=== PATIENT | female | born 1965 | race Caucasian/White ===

== ENCOUNTER 2025-04-22 12:00 | Emergency (ER) | payer OTHER, BC, SELFPAY ==
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
--- NOTE | ~2025-04-22 | XR_ITS ---
Examination: XR knee LT 3V Clinical History: trauma; LT KNEE PAIN Comparison: None Technique: 3 views left knee Findings/impression: No acute findings- 1. No fracture, dislocation, or effusion left knee. 2. No degenerative changes. Reviewed, dictated and finalized at location R.
--- NOTE | ~2025-04-22 | CT_ITS ---
EXAMINATION: CT brain wo con DATE: 04/22/2025 12:33 INDICATION: Head trauma TECHNIQUE: Computed tomography (CT) of the head was performed without intravenous contrast. Sagittal and coronal reconstructions were performed. The mA was adjusted according to patient size. Iterative reconstruction technique was employed. The dose-length product was 681.00 mGy-cm. COMPARISON: None FINDINGS: No fracture. No acute intracranial hemorrhage, acute infarction or abnormal extra axial fluid collection. Ventricles are normal and symmetric. No mass/mass effect. Mild to moderate mucosal thickening in the paranasal sinuses was performed in the bilateral maxillary sinuses. The orbits and mastoid air cells are normal. IMPRESSION: 1. No fracture or acute intracranial process. Reviewed, dictated and finalized at location A.
--- NOTE | ~2025-04-22 | CT_ITS ---
EXAMINATION: CT cervical spine wo con COMPARISON: None HISTORY: trauma TECHNIQUE: Axial images were obtained through the spine without IV contrast. Coronal, sagittal reconstruction images were obtained from the axial views. CT scan performed using dose optimization techniques including the following automated exposure control; adjustment of mA and/or kV; use of iterative reconstruction technique. Automatic exposure control was used to reduce radiation dose. Permanent radiation dose record is archived to PACS. FINDINGS: The vertebral heights are intact. No fracture or subluxation. Moderate loss of disc height at C5-6 and C6-7 with moderate canal and foraminal stenosis, outpatient MRI is recommended Soft tissues unremarkable. Impression: No acute abnormality. Reviewed, dictated and finalized at location P. Impression: No acute abnormality.
[2025-04-22 12:07] VITALS: BP 151/80; PULSE 74; RESP 20; TEMP 36.2; O2SAT 96
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
[2025-04-22] MEDS: ACETAMINOPHEN 500 MG TABLET 1000 MG PO (12:46)
[2025-04-22] MEDS: CYCLOBENZAPRINE HCL 10 MG TABLET PO (12:47)
--- OUTSIDE RECORDS SUMMARY | 2025-04-22 13:06 | XMS_ITS | Clinical Summary ---
Author Organization [facility] Address [address] [place] [address] Phone Care Team Providers Care Manager Group Name Role Phone Unavailable Primary Care Provider Unavailabl e Allergies No known active allergies Medications HYDROcodone-susan taminophen (NORCO) 5-325 mg tabletIndicatio ns:Calculus of ureter Take 1 Tablet by mouth every 4 hours as needed for Pain, Moderate. Max Daily Amount: 6 Tablets 20 Tablet 10/25/2024 Active Active Problems Problem Noted Date Diagnosed Date Ureterolithiasis 10/15/2020 Acute unilateral obstructive uropathy 10/15/2020 Kidney stone on right side 10/13/2020 ZORAIDA (obstructive sleep apnea) 10/13/2020 Encounters Date Type Department Care Team Description 04/01/2025 External Device Data [facility] ABSTRACTION Provider, Abstract 02/18/2025 External Device Data [facility] ABSTRACTION Provider, Abstract 01/29/2025 External Device Data [facility] ABSTRACTION Provider, Abstract 01/29/2025 External Device Data [facility] ABSTRACTION Provider, Abstract 01/28/2025 External Device Data [facility] ABSTRACTION Provider, Abstract from Last 3 Months Social History Tobacco Use Types Packs/Day Years Used Date Smoking Tobacco: Former Cigarettes Q uit: 09/14/2005 Smokeless Tobacco: Former Tobacco Cessation:Counseling Given: Not Answered Alcohol Use Standard Drinks/Week Comments Never 0 (1 standard drink = 0.6 oz pur e alcohol) Feeling Safe Answer Date Recorded Are you in a relationship wi th someone who hurts you emotionally and/or physically? No 10/25/2024 Comments No Sex and Gender Information Value Date Recorded Sex Assigned at Not on file Legal Sex Female 10:52 PM CDT Gender Identity Not on file Sexual Orientation Not on file Last Filed Vital Signs Vital Sign Reading Time Taken Comments Blood Pressure 141/77 10/25/2024 8:40 AM CDT Pulse 77 10/25/2024 8:40 AM CDT Temperature 36.1 C (97 F) 10/25/2024 8:43 AM CDT Respiratory Rate 15 10/25/2024 8:40 AM CDT Oxygen Saturation 98% 10/25/2024 8:40 AM CDT Inhaled Oxygen Concentration - - Weight 90.3 kg (199 lb) 10/25/2024 6:21 AM CDT Height 165.1 cm (5' 5) 10/25/2024 6:21 AM CDT Body Mass Index 33.12 10/25/2024 6:21 AM CDT Plan of Treatment Health Maintenance Due Date Last Done Comments Pre-Diabetes and Diabetes Screening 1965 HEPATITIS B VACCINES (1 of 3 - 19+ 3-dose series) 11/23/1986 HPV/Cotest (21-29) 11/23/1988 CERVICAL CANCER SCREENING 11/23/1997 HPV/Cotest (30-65) 11/23/1997 PAP SMEAR 11/23/1997 FIT-DNA Q 3 years 11/23/2012 FIT/FOBT Q 1 year 11/23/2012 Flex Sig/CT Colonography Q 5 years 11/23/2012 ZOSTER VACCINE (2 of 3) 10/31/2020 09/05/2020, 04/24 DTAP/TDAP/TD VACCINES (2 - T d or Tdap) 07/17/2024 07/17/2014 INFLUENZA VACCINE (#1) 2025 0, 07/15/2019, 05/09/2016 BREAST CANCER SCREENING 03/19/2025 03/19/20 24, 03/19/2024, 03/17/2023, Additional history exists COLORECTAL SCREENING 07/17/2027 07/17/2017 Colorectal Cancer Screening 07/17/2027 Medical Devices Implanted Type Area Dermatology Teacher Device Identifier Shelf Expiration Date Model / Serial / Lot Stent Uret Dbl Pgtl Slcn Blk [id number] - [id number] Implanted:Qty: 1 on 10/15/2020 by Jad Garcia MD at [facility] Stent Right: Ureter COOK- UROLOGY [id number] 07/23/2023 [id number] / / [id number] Stent Ureteral Dbl Pgtl 6fr 24cm [id number] - [id number] Implanted:Qty: 1 on 10/25/2024 by Jad Garcia MD at [facility] [place][Note 2] Stent Left: Ureter COOK- INTERVENTIONAL RAD [id number] 06/12/2026 [id number] / / [id number] Insurance [facility] FEDERAL Advance Directives For more information, please contact: [phone] * Full Code (Latest Code Status on File) Date Activated Date Inactivated Comments 10/13/2020 2:34 PM 10/15/2020 3:21 PM
--- OUTSIDE RECORDS SUMMARY | 2025-04-22 13:06 | XMS_ITS | Encounter Summary ---
Author Organization [facility] Address [address] [place] [address] Care Team Providers Care Shot Polisher Name Role Phone Unavailable Primary Care Provider Unavailabl e Reason for Visit * Reason Onset Date Comments KIDNEY STONES 10/13/2020 [facility] Encounter Details Date Type Department Care Team (Late st Contact Info) Description 10/13/2020 Telephone [facility] Admitting [address] [place] [address] Enzo Polo, [address] [place] [address] KIDNEY STONES ([facility]) Social History Tobacco Use Types Packs/Day Years Used Date Smoking Tobacco: Former Cigarettes Q uit: 09/14/2005 Smokeless Tobacco: Former Alcohol Use Standard Drinks/Week Comments Never 0 (1 standard drink = 0.6 oz pur e alcohol) Comments Unknown Sex and Gender Information Value Date Recorded Sex Assigned at Not on file Legal Sex Female 10:52 PM CDT Gender Identity Not on file Sexual Orientation Not on file COVID-19 Exposure Response Date Recorded In the last month, have you been in contact with someone who was confirmed or suspected to have Coronavirus / COVID-19? No / Unsure 10/15/2020 7:40 AM CDT documented as of this encounter Plan of Treatment Not on file documented as of this encounter Visit Diagnoses Not on filedocumented in this encounter
--- OUTSIDE RECORDS SUMMARY | 2025-04-22 13:06 | XMS_ITS | Encounter Summary ---
Author Organization [facility] Address [address] [place] [address] Care Team Providers Care Tank Maker Wood Name Role Phone Unavailable Primary Care Provider Unavailabl e Prior Encounters Date Type Department Care Team Description 11/11/2024 7:00 AM CDT Office Visit [facility] [address] [address] Fernando Godfrey Encounter for dental examination and cleaning without abnormal findings (Primary Dx) 03/22/2024 9:30 AM CDT Office Visit [facility] [address] [address] Daniel Acuna DMD 03/21/2024 1:00 PM CDT Office Visit [facility] [address] [address] Zaria Temple RDH Encounter for dental examination and cleaning without abnormal findings (Primary Dx) 03/21/2024 12:00 PM CDT Office Visit [facility] [address] [address] Daniel Acuna DMD Encounter for dental examination and cleaning without abnormal findings (Primary Dx) 08/21/2023 Travel 08/21/2023 2:00 PM ELECTRIC BLANKET WIRER Office Visit [facility] [address] [address] Zaria Temple RDH Encounter for dental examination and cleaning without abnormal findings (Primary Dx) 08/21/2023 2:00 PM ELECTRIC BLANKET WIRER Office Visit [facility] [address] [address] Fernando Godfrey. Encounter for dental examination and cleaning without abnormal findings (Primary Dx) 02/15/2023 7:00 AM CDT Office Visit [facility] [address] [address] Fernando Godfrey 08/09/2022 9:00 AM ELECTRIC BLANKET WIRER Office Visit [facility] [address] [place] [address] [phone] Fernando Godfrey 09/23/2021 8:15 AM ELECTRIC BLANKET WIRER Office Visit [facility] [address] [place] [address] Zaria Temple, [facility] 09/23/2021 Travel 09/23/2021 8:00 AM ELECTRIC BLANKET WIRER Office Visit [facility] [address] [place] [address] Steve Bello, DMD 08/11/2021 Travel 08/11/2021 8:00 AM ELECTRIC BLANKET WIRER Office Visit [facility] [address] [place] [address] Steve Bello, DMD 03/24/2021 10:30 AM CDT Office Visit [facility] [address] [place] [address] Zaria Temple, [facility] 03/24/2021 Travel 03/24/2021 10:00 AM CDT Office Visit [facility] [place] [address] Steve Bello, DMD 08/05/2019 Converted CPS Chart Documents [facility] [place] [address] <No scans attached> 08/05/2019 Converted 13x Documents [facility] [place] [address] <No scans attached> Last Filed Vital Signs Vital Sign Reading Time Taken Comments Blood Pressure 123/83 03/22/2024 9:39 AM CDT Pulse 65 03/22/2024 9:39 AM CDT Temperature - - Respiratory Rate - - Oxygen Saturation - - Inhaled Oxygen Concentration - - Weight - - Height - - Body Mass Index - - Plan of Treatment Upcoming Encounters Date Type Department Care Team (Late st Contact Info) Description 05/19/2025 7:00 AM ELECTRIC BLANKET WIRER Office Visit [facility] [address] [address] Fernando Godfrey [address] [phone] Procedures Procedure Name Priority Date/Time Associated Diagnosis Comments PROPHYLAXIS - ADULT Routine 11/11/2024 7 :00 AM CDT Encounter for dental examination and cleaning without abnormal findings BITEWINGS - FOUR RADIOGRAPHIC IMAGES Routine 11/11/2024 7:00 AM CDT PERIODIC ORAL EVALUATION - ESTABLISHED PATIENT Routine 11/11/2024 7:00 AM CDT Encounter for dental examination and cleaning without abnormal findings 15 O RESIN-BASED COMPOSITE - ONE SURFACE, POSTERIOR Routine 03/22/2024 9:30 AM CDT PROPHYLAXIS - ADULT Routine 03/21/2024 1 :00 PM CDT Encounter for dental examination and cleaning without abnormal findings PERIODIC ORAL EVALUATION - ESTABLISHED PATIENT Routine 03/21/2024 12:00 PM CDT Encounter for dental examination and cleaning without abnormal findings PROPHYLAXIS - ADULT Routine 08/21/2023 2 :00 PM ELECTRIC BLANKET WIRER Encounter for dental examination and cleaning without abnormal findings ORAL HYGIENE INSTRUCTIONS Routine 2023 2:00 PM ELECTRIC BLANKET WIRER PERIODIC ORAL EVALUATION - ESTABLISHED PATIENT Routine 08/21/2023 2:00 PM ELECTRIC BLANKET WIRER Encounter for dental examination and cleaning without abnormal findings BITEWINGS - FOUR RADIOGRAPHIC IMAGES Routine 08/21/2023 2:00 PM ELECTRIC BLANKET WIRER 5 MOD COMPOSITE FILLING Routine 08/21/19 12:00 AM ELECTRIC BLANKET WIRER PLAN VISIT FEE Routine 02/15/2023 7:00 AM CDT PERIODIC ORAL EVALUATION - ESTABLISHED PATIENT Routine 02/15/2023 7:00 AM CDT PROPHYLAXIS - ADULT Routine 02/15/2023 7 :00 AM CDT TOPICAL APPLICATION OF FLUORIDE VARNISH Routine 02/15/2023 7:00 AM CDT PLAN VISIT FEE Routine 08/09/2022 9:00 AM ELECTRIC BLANKET WIRER INTRAORAL PHOTO Routine 08/09/2022 9:00 AM ELECTRIC BLANKET WIRER COMPREHENSIVE ORAL EVALUATION - NEW OR ESTABLISHED PATIENT Routine 08/09/2022 9:00 AM ELECTRIC BLANKET WIRER INTRAORAL - COMPREHENSIVE SERIES OF RADIOGRAPHIC IMAGES Routine 08/09/2022 9:00 AM ELECTRIC BLANKET WIRER PANORAMIC RADIOGRAPHIC IMAGE Routine 08/09/2022 9:00 AM ELECTRIC BLANKET WIRER INTRAORAL PHOTO Routine 08/09/2022 9:00 AM ELECTRIC BLANKET WIRER INTRAORAL PHOTO Routine 08/09/2022 9:00 AM ELECTRIC BLANKET WIRER INTRAORAL PHOTO Routine 08/09/2022 9:00 AM ELECTRIC BLANKET WIRER PROPHYLAXIS - ADULT Routine 09/23/2021 8 :15 AM ELECTRIC BLANKET WIRER BITEWINGS - FOUR RADIOGRAPHIC IMAGES Routine 09/23/2021 8:00 AM ELECTRIC BLANKET WIRER PERIODIC ORAL EVALUATION - ESTABLISHED PATIENT Routine 09/23/2021 8:00 AM ELECTRIC BLANKET WIRER NEW PATIENT INTRAORAL - PERIAPICAL FIRST RADIOGRAPHIC IMAGE Routine 08/11/2021 8:00 AM ELECTRIC BLANKET WIRER 14 RECEMENT CROWN Routine 08/11/2021 8:0 0 AM ELECTRIC BLANKET WIRER OFFICE VISIT FOR OBSERVATION (DURING REGULARLY SCHEDULED HOURS) - NO OTHER SERVICES PERFORMED Routine 08/11/2021 8:00 AM ELECTRIC BLANKET WIRER TOPICAL APPLICATION OF FLUORIDE VARNISH Routine 03/24/2021 10:30 AM CDT PROPHYLAXIS - ADULT Routine 03/24/2021 1 0:30 AM CDT PLAN VISIT FEE Routine 03/24/2021 10:00 AM CDT PERIODIC ORAL EVALUATION - ESTABLISHED PATIENT Routine 03/24/2021 10:00 AM CDT 14 CERECFIRED CROWNPOST Routine 09/22/19 2:00 AM ELECTRIC BLANKET WIRER 18 CERECFIRED CROWNPOST Routine 09/22/19 2:00 AM ELECTRIC BLANKET WIRER 14 ENDODONTIC THERAPY, MOLAR TOOTH (EXCLUDING FINAL JEWISH) Routine 09/21/2020 2:00 AM ELECTRIC BLANKET WIRER COMPREHENSIVE ORAL EVALUATION - NEW OR ESTABLISHED PATIENT Routine 09/21/2020 2:00 AM ELECTRIC BLANKET WIRER ORAL HYGIENE INSTRUCTIONS Routine 2020 2:00 AM ELECTRIC BLANKET WIRER ORAL HYGIENE INSTRUCTIONS Routine 2020 2:00 AM ELECTRIC BLANKET WIRER PROPHYLAXIS - ADULT Routine 09/21/2020 2 :00 AM ELECTRIC BLANKET WIRER PANORAMIC RADIOGRAPHIC IMAGE Routine 09/21/2020 2:00 AM ELECTRIC BLANKET WIRER INTRAORAL - COMPREHENSIVE SERIES OF RADIOGRAPHIC IMAGES Routine 09/21/2020 2:00 AM ELECTRIC BLANKET WIRER PLAN VISIT FEE Routine 09/21/2020 2:00 AM ELECTRIC BLANKET WIRER INTRAORAL PHOTO Routine 09/21/2020 2:00 AM ELECTRIC BLANKET WIRER INTRAORAL PHOTO Routine 09/21/2020 2:00 AM ELECTRIC BLANKET WIRER INTRAORAL PHOTO Routine 09/21/2020 2:00 AM ELECTRIC BLANKET WIRER INTRAORAL PHOTO Routine 09/21/2020 2:00 AM ELECTRIC BLANKET WIRER 19 DO COMPOSITE FILLING Routine 09/22/19 21 2:00 AM ELECTRIC BLANKET WIRER 31 O COMPOSITE FILLING Routine 1 2:00 AM ELECTRIC BLANKET WIRER 30 O COMPOSITE FILLING Routine 1 2:00 AM ELECTRIC BLANKET WIRER 15 O COMPOSITE FILLING Routine 1 2:00 AM ELECTRIC BLANKET WIRER 3 O COMPOSITE FILLING Routine 09/21/2020 2:00 AM ELECTRIC BLANKET WIRER 2 O COMPOSITE FILLING Routine 09/21/2020 2:00 AM ELECTRIC BLANKET WIRER Visit Diagnoses Diagnosis Start Date Encounter for dental examination and cleaning without abnormal findings 08/21/2023 Encounter for dental examination and cleaning without abnormal findings 08/21/2023 Encounter for dental examination and cleaning without abnormal findings 03/21/2024 Encounter for dental examination and cleaning without abnormal findings 03/21/2024 Encounter for dental examination and cleaning without abnormal findings 11/11/[address] [facility] ELISE PEARSON [id number] [facility] [place] FEDERAL
--- OUTSIDE RECORDS SUMMARY | 2025-04-22 13:06 | XMS_ITS | Clinical Summary ---
Author Organization [facility] Address [address] [place] [address] Care Team Providers Care General Office Assistant Name Role Phone Unavailable Primary Care Provider Unavailabl e Social History Tobacco Use Types Packs/Day Years Used Date Smoking Tobacco: Never Assessed Comments Unknown Sex and Gender Information Value Date Recorded Sex Assigned at Not on file Legal Sex Female 6:54 PM CDT Gender Identity Not on file Sexual Orientation Not on file Plan of Treatment Health Maintenance Due Date Last Done Comments Cervical Cancer Screening Pa p Smear (Age 30 to 64) Every 3 Years 1967 Colorectal Cancer Screening Colonoscopy (10 Years) 1967 Annual Physical 11/23/1970 Hepatitis C 11/23/1985 DTaP, Tdap and Td Vaccines ( 1 - Tdap) 11/23/1986 Hepatitis B Vaccines (1 of 3 - 19+ 3-dose series) 11/23/1986 Cervical Cancer Screening Pa p with HPV Testing (Age 30 to 64) Every 5 Years 11/23/1997 Cervical Cancer Screening with HPV 11/23/1997 Mammogram Screening 2007 Pneumococcal Vaccine: 50+ Ye ars (1 of 1 - PCV) 11/23/2017 Zoster Vaccines (1 of 2) 11/23/2017 COVID-19 Vaccine (2023-2 5 season) 2025 Influenza Adult (#1) 2025 Meningococcal B Vaccine Aged Out No l onger eligible based on patient's age to complete this topic Meningococcal Vaccine Aged Out No zac marisela eligible based on patient's age to complete this topic RSV Immunizations Under 20 Months Aged Out No longer eligible based on patient's age to complete this topic
--- OUTSIDE RECORDS SUMMARY | 2025-04-22 13:06 | XMS_ITS | Clinical Summary ---
Author Organization [facility] Address [address] [place] [address] Care Team Providers Care Ultrasound Sonographer Name Role Phone Michael Covington DO Primary Care Provider + Encounters Date Type Department Care Team Description 03/31/2025 12:42 PM CDT - 03/31/2025 11:59 PM CDT Hospital Encounter [address] [place] [address] Screening mammogram, encounter for Discharge Disposition: Discharge to home or self care from Last 3 Months Family History Medical History Relation Name Comments Breast cancer Cousin Breast cancer Father's Sister Ovarian cancer Neg Hx Pancreatic cancer Neg Hx Prostate cancer Neg Hx Relation Name Status Comments Cousin Father's Sister Social History Tobacco Use Types Packs/Day Years Used Date Smoking Tobacco: Never Assessed Comments Unknown Sex and Gender Information Value Date Recorded Sex Assigned at Not on file Legal Sex Female 8:49 AM CDT Gender Identity Not on file Sexual Orientation Not on file Obstetrics History Para Term AB IAB SAB Ectopic Multiple Livin g Live Births 9 1 Date Outcome GA Total Labor Labor/2nd/3rd Weight Sex Type Anes PTL Rama A1 A5 Name Clin Last Filed Vital Signs Vital Sign Reading Time Taken Comments Blood Pressure - - Pulse - - Temperature - - Respiratory Rate - - Oxygen Saturation - - Inhaled Oxygen Concentration - - Weight 90.7 kg (200 lb) 03/31/2025 12:47 PM CDT Height 165.1 cm (5' 5) 03/31/2025 12:47 PM CDT Body Mass Index 33.28 03/31/2025 12:47 PM CDT Plan of Treatment Health Maintenance Due Date Last Done Comments Cervical Cancer Screening 1967 Colon Cancer Screening-Colonoscopy 1967 Depression Screening 1967 Hepatitis C Screening 1967 Hepatitis B Screening 11/23/1985 Regular Well Visit/Exam 18-64 11/23/1985 DTaP/Tdap/Td Vaccine (2 - Td or Tdap) 07/17/2024 07/17/2014 Influenza Vaccine (#1) 2025 3, 04/04/2020, 04/04/2020, Additional history exists Breast Cancer Screening-Mammogram 03/31/2026 03/31/2025, 03/19/2024, 03/17/2023, Additional history exists Pneumococcal vaccine <65 Aged Out 05/09/2016 No longer eligible based on patient's age to complete this topic Zoster Vaccine Completed 09/05/2020, 08/18, 04/24/2020, Additional history exists Procedures Procedure Name Priority Date/Time Associated Diagnosis Comments SCREENING MAMMOGRAM BILATERAL W REYNOLD Schedule Routine, Read Routine (OP Routine) 03/31/2025 12:59 PM CDT Screening mammogram, encounter for from Last 3 Months Results * Screening Mammogram Bilateral W Reynold (03/31/2025 12:59 PM CDT) Anatomical Region Laterality Modality Breast Bilateral Mammography Impressions 04/01/2025 1:33 PM CDT Bilateral No evidence of malignancy in either breast. OVERALL BI-RADS FINAL ASSESSMENT: 1 - Negative RECOMMENDATION: Recommend bilateral annual screening mammography. Narrative 04/01/2025 1:33 PM CDT EXAMINATION: Screening Mammogram Bilateral W Reynold: 03/31/2025 COMPARISON: Relevant prior studies available at the time of interpretation were reviewed, including the most recent mammogram on: 03/19/2024. TECHNIQUE: Mammography was performed with 2D and 3D digital breast tomosynthesis (DBT) images. CAD was utilized. BREAST PARENCHYMAL COMPOSITION: There are scattered areas of fibroglandular density. FINDINGS: Bilateral There is no suspicious mass, calcification, or architectural distortion in either breast. us Self Screening Mammogram IMG MAMMO PROCEDURES Fi nal Result from Last 3 Months Insurance [facility] Care Teams Ultrasound Sonographer Relationship Specialty Start Date End Date Michael Covington DO PCP - General 11/05/20
--- OUTSIDE RECORDS SUMMARY | 2025-04-22 13:06 | XMS_ITS | Clinical Summary ---
Author Organization [facility] Address [address] [place] [address] Care Team Providers Care Building Official Name Role Phone Michael Covington DO Primary Care Provider [phone] Tanisha Rascon DDS Unavailable Luis Cabrera MD Unavailable [phone] Source Comments [facility],non-owned Affiliates and Associated Physician Practices is amultiple site organization consisting of ambulatory clinics and hospital sitesin [place], [place], [place] and [place]. This disclosure is being madepursuant to the Care Everywhere program and may not contain all information available regarding this patient. Last updated 18.[facility] Allergies No known active allergies Medications * Be aware that medications may not be up to date on this document. Alwaysverify current medications with the patient. No known medications Active Problems Problem Noted Date Diagnosed Date Ureterolithiasis 10/15/2020 Acute unilateral obstructive uropathy 10/15/2020 Kidney stone on right side 10/13/2020 ZORAIDA (obstructive sleep apnea ) 2020: mild to moderate ZORAIDA, 191 lbs, AHI (3%) 23, AHI (4%), 14, SpO2 jermaine 79 % and < 89% for 20 min 02/26/2020 GERD (gastroesophageal reflux disease) 0 Varicose veins of lower extremity 11/14/2018 Dyspnea 10/31/2018 Electrocardiogram abnormal 09/11/2018 Resolved Problems Problem Noted Date Diagnosed Date Resolved Date Class 1 obesity due to exces s calories without serious comorbidity with body mass index (BMI) of 31.0 to 31.9 in adult 09/27/201904/2025 Hypersomnia 09/27/2019 10/24/2024 Malaise and fatigue 09/27/2019 10/25/19 Suspected sleep apnea 09/27/20192020 Snoring 09/27/2019 09/04/2020 Abnormal cytological finding in specimen from anus 08/05/2019 10/24/2024 Menstruation disorder 08/05/20192024 Atypical squamous cells of u ndetermined significance (ASCUS) on Papanicolaou smear of cervix 08/05/2019 10/24/2024 Cervical intraepithelial neoplasia grade 2 08/05/2019 10/24/2024 Irregular periods 08/05/2019 10/24/2024 Encounters Date Type Department Care Team Description 04/02/2025 Results Follow-Up [facility] [address] [place] [address] Michael Covington DO 02/05/2025 9:00 AM CDT Office Visit [facility] [address] [place] [phone] Elaina Sequeira, DIRECTOR MUSEUM OR ZOO-LEAD MECHANIC Concussion without loss of consciousness, initial encounter (Primary Dx) 02/04/2025 Nurse Triage [facility] [address] [place] [phone] Michael Covington DO Headache; Question from Last 3 Months Immunizations Immunization Administration Dates Next Due FLU VACCINE QUAD IIV4 SPLIT 0.25 ML IM 6 INFLUENZA VACCINE 06/06/2023 INFLUENZA VACCINE, CELL CULT URE, QUADR. (FLUCELVAX QUADRIVALENT; 6MO+) (CCIIV4) 07/15/2019 INFLUENZA VACCINE, QUADR. (F LUZONE; FLULAVAL; FLUARIX; AFLURIA QUADRIVALENT; 6MO+), 0.5 ML (IIV4) 04/04/2020 MARC VACCINE QUAD LAIV4 PF NASAL 04/04/2020,2018,05/09/2016 Pneumococcal Pcv13 Conj 05/09/2016 TDAP (7yrs+) 07/17/2014 ZOSTER VACCINE, LIVE 09/05/2020,04/24/2020 Zoster Hzv Vacc Recombinant Inj Im 09/05/2020, Family History Medical History Relation Name Comments CAD (Coronary Artery Disease) Brother Sleep Disorder - Other Brother ZORAIDA o n CPAP Cancer - Lung Father smoker CAD (Coronary Artery Disease) Mother Relation Name Status Comments Brother Alive Father Mother Alive Social History Tobacco Use Types Packs/Day Years Used Date Smoking Tobacco: Former Smokeless Tobacco: Never Comments:quit in 2008 Alcohol Use Standard Drinks/Week Comments Yes 0 (1 standard drink = 0.6 oz pur e alcohol) AUDIT-C Answer Date Recorded Frequency of Alcohol Consumption Monthly or less 08/05/2019 Average Number of Drinks 1 or 2 020 Frequency of Binge Drinking Less than monthly PHQ-2 Answer Date Recorded Patient Health Questionnaire-2 Score 0 12/02/2024 Comments No Sex and Gender Information Value Date Recorded Sex Assigned at Not on file Legal Sex Female 3:04 PM ASSOCIATE PROFESSOR OF HISTORY Gender Identity Not on file Sexual Orientation Not on file Last Filed Vital Signs Vital Sign Reading Time Taken Comments Blood Pressure 134/90 02/05/2025 9:11 AM CDT Pulse 77 02/05/2025 9:11 AM CDT Temperature 36 C (96.8 F) 05/22/2024 3:37 PM ASSOCIATE PROFESSOR OF HISTORY Respiratory Rate 18 12/02/2024 8:11 AM CDT Oxygen Saturation 97% 02/05/2025 9:11 AM CDT Inhaled Oxygen Concentration - - Weight 91.6 kg (202 lb) 02/05/2025 9:11 AM CDT Height 162.6 cm (5' 4) 12/12/2024 9:37 AM CDT Body Mass Index 34.67 12/12/2024 9:37 AM CDT Plan of Treatment Health Maintenance Due Date Last Done Comments COLOGUARD (AGES 45-75) - COLON CA SCREENING [address] COLONOGRAPHY - COLON CA SCREENING 1967 FIT - COLON CA SCREENING 1967 FLEX SIG - COLON CA SCREENING 1967 HIV SCREENING 11/23/1982 HEPATITIS C SCREENING 11/19/1985 HEPATITIS B VACCINE (1 of 3 - 19+ 3-dose series) 11/23/1986 PNEUMOCOCCAL VACCINE 50+ (2 of 2 - PPSV23, PCV20, or PCV21) 07/04/2016 05/09/2016 DTAP/TDAP/TD VACCINES (2 - Td or Tdap) 07/17/2024 07/17/2014 COVID-19 VACCINE ( season) 2025 01/27/2021, 01/06/2021 INFLUENZA VACCINE (#1) 2025 3, 04/04/2020, 04/04/2020, Additional history exists PAP SMEAR 08/10/2026 08/10/2023 (Done Outside Per Report), 09/14/2020 (Done Outside Per Patient) MAMMOGRAM 03/31/2027 03/31/2025, 0909/2023, 03/19/2024, Additional history exists COLONOSCOPY - COLON CA SCREENING 07/17/2027 07/17/2017 (Done Outside Per Report) Colorectal Cancer Screening 07/17/2027 SCREENING FOR DIABETES 12/14/2027 , 12/19/2022, 12/02/2021, Additional history exists LIPID TESTING 12/20/2027 12/19/2022, 11/14, 08/05/2019 ZOSTER VACCINE Completed 09/05/2020, 08/18, 04/24/2020, Additional history exists DEPRESSION SCREENING Completed 09/24/2024, 08/04/2023, 12/20/2022, Additional history exists HIB VACCINE Aged Out No longer eligi ble based on patient's age to complete this topic HPV VACCINE Aged Out No longer eligi ble based on patient's age to complete this topic MENINGOCOCCAL (Group B) VACCINE SHARED DECISION-MAKING Aged Out No longer eligible based on patient's age to complete this topic MENINGOCOCCAL GROUPS A/C/Y/W VACCINE Aged Out No longer eligible based on patient's age to complete this topic Procedures Procedure Name Priority Date/Time Associated Diagnosis Comments MAMMOGRAM 03/31/2025 COMPREHENSIVE METABOLIC PANEL Routine 12/13/2024 8:43 AM CDT Bilateral leg edema LIPID PROFILE Routine 12/19/2022 8:05 AM CDT Well adult exam from Last 3 Months or Most Recently Relevant to Health Maintenance Results * MAMMOGRAM (03/31/2025) Anatomical Region Laterality Modality Other 03/31/2025 Narrative 03/31/2025 Ordered by an unspecified provider. us Scanned Document SCANNING ONLY Final Result * COMPREHENSIVE METABOLIC PANEL (12/13/2024 8:43 AM CDT) Pathologist [facility] [place] Glucose 97 65 - 99 mg/dL [facility] Comment: Fasting reference interval BUN 10 7 - 25 mg/dL [facility] Creatinine 0.57 0.50 - 1.03 mg/dL [facility] eGFR by Cystatin C 106 > OR = 60 mL/min/1. 73m2 [facility] BUN/Creatinine Ratio SEE NOTE: 6 - 22 (calc) [facility] Comment: Not Reported: BUN and Creatinine are within reference range. Sodium 140 135 - 146 mmol/L [facility] Potassium 4.2 3.5 - 5.3 mmol/L [facility] Chloride 104 98 - 110 mmol/L [facility] CO2 26 20 - 32 mmol/L [facility] Calcium 9.5 8.6 - 10.4 mg/dL [facility] Protein Total 6.9 6.1 - 8.1 g/dL [facility] Albumin 4.4 3.6 - 5.1 g/dL [facility] Globulin Total 2.5 1.9 - 3.7 g/dL (calc) [facility] Albumin/Globulin Ratio 1.8 1.0 - 2.5 (calc) [facility] Bilirubin Total 0.5 0.2 - 1.2 mg/dL [facility] Alkaline Phosphatase 84 37 - 153 U/L [facility] AST 13 10 - 35 U/L [facility] ALT 14 6 - 29 U/L [facility] Comment: Test Performed at: [facility] [id number] [place] [id number] JASMIN HAMILTON MD Blood BLOOD SPECIMEN / Unknown 12/13/2024 8:43 AM CDT 12/13/2024 8:49 AM CDT Kvng Pablo MD LAB - CHEMISTRY ORDERABLES F inal Result [facility] [address] [place] [address] * (ABNORMAL) LIPID PROFILE (12/19/2022 8:05 AM CDT) Cholesterol 224(H) <200 mg/dL [facility] HDL Cholesterol 59 > OR = 50 mg/dL [facility] Triglycerides 91 <150 mg/dL [facility] LDL Calculated 145(H) mg/dL (calc) [facility] Comment: Reference range: <100 Desirable range <100 mg/dL for primary prevention; <70 mg/dL for patients with CHD or diabetic patients with > or = 2 CHD risk factors. LDL-C is now calculated using the Laura calculation, which is a validated novel method providing better accuracy than the Friedewald equation in the estimation of LDL-C. Ty SS et al. VIPUL. 2013;310(19): 7602-6826 (http://education.Zyga/faq/OOR138) CHOL/HDLC RATIO 3.8 <5.0 (calc) [facility] Non HDL Cholesterol 165(H) <130 mg/dL (calc) [facility] Comment: For patients with diabetes plus 1 major ASCVD risk factor, treating to a non-HDL-C goal of <100 mg/dL (LDL-C of <70 mg/dL) is considered a therapeutic option. Test Performed at: [facility] [address] [place] [phone] JASMIN HAMILTON MD Blood BLOOD SPECIMEN / Unknown 12/19/2022 8:05 AM CDT 12/19/2022 8:06 AM CDT Michael Covington DO LAB - CHEMISTRY ORDERABLES Fin al Result [facility] [address] [place] [address] from Last 3 Months or Most Recently Relevant to Health Maintenance Insurance [facility] Care Teams Building Official Relationship Specialty Start Date End Date Michael Covington DO PCP - General Family Medicine 08/05/19 Tanisha Rascon DDS [phone] [facility] [address] [place] [address] Dentist 02/26/20 Luis Cabrera MD [address] [facility] [address] [place] [address] Pulmonary Disease 09/24/24
--- OUTSIDE RECORDS SUMMARY | 2025-04-22 13:06 | XMS_ITS | Clinical Summary ---
Author Organization [facility] Address [address] [place] [address] Care Team Providers Care Financial Services Officer Name Role Phone Unavailable Primary Care Provider Unavailabl e Allergies No known active allergies Medications lansoprazole (PREVACID) [address] capsule Take 30 mg by mouth 1 (one) time each day. 1 Active amoxicillin-pot clavulanate (AUGMENTIN) 875-125 mg tablet Take 875 mg by mouth. 1 Active benzonatate (TESSALON) 100 mg capsule Take 100 mg by mouth 3 (three) times a day if needed. 1 Active azithromycin (ZITHROMAX) 250 mg tablet Take 2 tabs today, then 1 tab daily for next 4 days 2 Active cefuroxime (CEFTIN) 500 mg tablet Take 500 mg by mouth in the morning and 500 mg before bedtime. for 10 days. 2 Active predniSONE (DELTASONE) 20 mg tablet TAKE 2 TABLETS BY MOUTH EVERY DAY FOR 7 DAYS 2 Active miscellaneous medical supply kit Dental appliance for sleep apnea Active Active Problems Problem Noted Date Diagnosed Date Acute unilateral obstructive uropathy 10/15/2020 Ureterolithiasis 10/15/2020 Kidney stone on right side 10/13/2020 ZORAIDA (obstructive sleep apnea) 02/26/2020 Class 1 obesity due to exces s calories without serious comorbidity with body mass index (BMI) of 31.0 to 31.9 in adult 09/27/2019 GERD (gastroesophageal reflux disease) 0 Hypersomnia 09/27/2019 Malaise and fatigue 09/27/2019 Abnormal cytological finding in specimen from an us 08/05/2019 Atypical squamous cells of u ndetermined significance (ASCUS) on Papanicolaou smear of cervix 08/05/2019 Cervical intraepithelial neoplasia grade 2 08/05 Irregular periods 08/05/2019 Menstruation disorder 08/05/2019 Varicose veins of lower extremity 11/14/2018 Dyspnea 10/31/2018 Electrocardiogram abnormal 09/11/2018 Immunizations Immunization Administration Dates Next Due Influenza, live, intranasal, quadrivalent 2019,07/15/2019,05/09/2016 Pneumococcal conjugate PCV 13 05/09/2016 Tdap 07/17/2014 Zoster live 09/05/2020,04/24/2020 Social History Tobacco Use Types Packs/Day Years Used Date Smoking Tobacco: Former Cigarettes 0.5 15 Smokeless Tobacco: Never Alcohol Use Standard Drinks/Week Comments Not Currently 0 (1 standard drink = 0.6 oz pur e alcohol) Comments Unknown Sex and Gender Information Value Date Recorded Sex Assigned at Not on file Legal Sex Female 4:46 PM PDT Gender Identity Not on file Sexual Orientation [...] st Contact Info) Description 05/19/2025 7:00 AM ARABIC TEACHER Office Visit [facility] [address] [phone] Fernando Godfrey [address] [place] [address] Health Maintenance Due Date Last Done Comments Dental Oral Exam 05/14/2025 11/11/2024, 11/2023, 08/21/2023, Additional history exists Dental Prophylaxis 05/14/2025 11/11/2024, 0 03/21/2024, 08/21/2023, Additional history exists Dental X-Ray: Bitewings 05/14/2025 11/11/2024 Dental X-Ray: Full Mouth 08/10/2025 08/09/2022, 03/0 02/2021 Dental X-Ray: Panoramic 08/10/2025 08/09/2022, 09/21 Colonoscopy Discontinued 07/17/2017 Procedures Procedure Name Priority Date/Time Associated Diagnosis Comments PROPHYLAXIS - ADULT Routine 11/11/2024 7 :00 AM CDT Encounter for dental examination and cleaning without abnormal findings PERIODIC ORAL EVALUATION - ESTABLISHED PATIENT Routine 11/11/2024 7:00 AM CDT Encounter for dental examination and cleaning without abnormal findings PANORAMIC RADIOGRAPHIC IMAGE Routine 08/09/2022 9:00 AM ARABIC TEACHER INTRAORAL - COMPREHENSIVE SERIES OF RADIOGRAPHIC IMAGES Routine 08/09/2022 9:00 AM ARABIC TEACHER from Last 3 Months or Most Recently Relevant to Health Maintenance Insurance [facility] [place] FEDERAL
--- OUTSIDE RECORDS SUMMARY | 2025-04-22 13:06 | XMS_ITS | Encounter Summary ---
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
--- NOTE | 2025-04-22 13:18 | PC.NURSE ---
Pt. educated to not drive d/t receiving flexeril. Visitor at bedside heard education too. Pt. has called a friend for a ride home and verbalized the education to not drive today.
[2025-04-22 13:19] VITALS: BP 148/84; PULSE 68; RESP 14; TEMP 36.6; O2SAT 97
--- OUTSIDE RECORDS SUMMARY | 2025-04-22 13:46 | XMS_ITS | Clinical Summary ---
Author Organization [facility] Address [address] [place] [address] Care Team Providers Care Piling Cutter Name Role Phone Unavailable Primary Care Provider [...]
--- OUTSIDE RECORDS SUMMARY | 2025-04-22 13:46 | XMS_ITS | Clinical Summary ---
Author Organization [facility] Address [address] [place] [address] Phone Care Team Providers Care Site Specialist Name Role Phone Unavailable Primary Care Provider [...] Screening 07/17/2027 Medical Devices Implanted Type Area Tire Buster Device Identifier Shelf Expiration Date Model / Serial / Lot Stent Uret Dbl Pgtl Slcn Blk [id number] - [id number] Implanted:Qty: 1 on 10/15/2020 by Jad Garcia MD at [facility] Stent Right: Ureter COOK- UROLOGY [id number] 07/23/2023 [id number] / / [id number] Stent Ureteral Dbl Pgtl 6fr 24cm [id number] - [id number] Implanted:Qty: 1 on 10/25/2024 by Jad Garcia MD at [facility] Stent Left: Ureter COOK- INTERVENTIONAL RAD [id number] 06/12/2026 [id number] / / [id number] Insurance [facility] FEDERAL Advance Directives For more information, please contact: [phone] * Full Code (Latest Code Status on File) Date Activated Date Inactivated Comments 10/13/2020 2:34 PM 10/15/2020 3:21 PM
--- OUTSIDE RECORDS SUMMARY | 2025-04-22 13:46 | XMS_ITS | Clinical Summary ---
Author Organization [facility] Address [address] [place] [phone] Care Team Providers Care Lead Pressman Name Role Phone Michael Covington DO Primary Care Provider + Encounters Date Type Department Care Team Description 03/31/2025 12:42 PM CDT - 03/31/2025 11:59 PM CDT Hospital Encounter [address] [place] [address] Screening mammogram, encounter for Discharge [...] nal Result from Last 3 Months Insurance [facility] [employer] [facility] [employer] Care Teams Lead Pressman Relationship Specialty Start Date End Date Michael Covington DO PCP - General 11/05/20
--- OUTSIDE RECORDS SUMMARY | 2025-04-22 13:46 | XMS_ITS | Encounter Summary ---
Author Organization [facility] Address [address] [place] [address] Care Team Providers Care Roll Up Operator Name Role Phone Unavailable Primary Care Provider Unavailabl e Reason for Visit * Reason Onset Date Comments KIDNEY STONES 10/13/2020 [facility] Encounter Details Date Type Department Care Team (Late st Contact Info) Description 10/13/2020 Telephone [facility] Admitting [address] [place] [address] Enzo Polo, [address] [place] [address] KIDNEY STONES ([facility]) Social History Tobacco Use Types Packs/Day [...]
--- OUTSIDE RECORDS SUMMARY | 2025-04-22 13:46 | XMS_ITS | Encounter Summary ---
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
--- OUTSIDE RECORDS SUMMARY | 2025-04-22 13:46 | XMS_ITS | Clinical Summary ---
Author Organization [facility] Health Address [address] [place] [address] Care Team Providers Care Banquet Food Server Name Role Phone Unavailable Primary Care Provider [...] st Contact Info) Description 05/19/2025 7:00 AM COLORS CUSTODIAN Office Visit [facility] [address] [address] Fernando Godfrey [address] [address] Health Maintenance Due Date Last Done Comments [...] PANORAMIC RADIOGRAPHIC IMAGE Routine 08/09/2022 9:00 AM COLORS CUSTODIAN INTRAORAL - COMPREHENSIVE SERIES OF RADIOGRAPHIC IMAGES Routine 08/09/2022 9:00 AM COLORS CUSTODIAN from Last 3 Months or Most Recently Relevant to Health Maintenance Insurance [facility] [place]
--- OUTSIDE RECORDS SUMMARY | 2025-04-22 13:46 | XMS_ITS | Encounter Summary ---
Author Organization [facility] Health Address [address] [place] [address] Care Team Providers Care Risk Investigator Name Role Phone Unavailable Primary Care Provider Unavailabl e Prior Encounters Date Type Department Care Team Description 11/11/2024 7:00 AM CDT Office Visit [facility] [address] [address] Fernando Godfrey Encounter for dental examination and cleaning without abnormal findings (Primary Dx) 03/22/2024 9:30 AM CDT Office Visit [facility] [address] [address] Daniel Acuna DMD 03/21/2024 1:00 PM CDT Office Visit [facility] [address] [address] Zaria Temple RDH Encounter for dental examination and cleaning without abnormal findings (Primary Dx) 03/21/2024 12:00 PM CDT Office Visit [facility] [address] [address] Daniel Acuna DMD Encounter for dental examination and cleaning without abnormal findings (Primary Dx) 08/21/2023 Travel 08/21/2023 2:00 PM FINANCE DIRECTOR Office Visit [facility] [address] [address] Zaria Temple RDH Encounter for dental examination and cleaning without abnormal findings (Primary Dx) 08/21/2023 2:00 PM FINANCE DIRECTOR Office Visit [facility] [address] [address] Fernando Godfrey. Encounter for dental examination and cleaning without abnormal findings (Primary Dx) 02/15/2023 7:00 AM CDT Office Visit [facility] [address] [address] Fernando Godfrey 08/09/2022 9:00 AM FINANCE DIRECTOR Office Visit [facility] [address] [place] [address] [address] Fernando Godfrey 09/23/2021 8:15 AM FINANCE DIRECTOR Office Visit [facility] [address] [place] [address] Zaria Temple, [facility] 09/23/2021 Travel 09/23/2021 8:00 AM FINANCE DIRECTOR Office Visit [facility] [address] [place] [address] Steve Bello, DMD 08/11/2021 Travel 08/11/2021 8:00 AM FINANCE DIRECTOR Office Visit [facility] [address] [place] [address] Steve Bello, DMD 03/24/2021 10:30 AM CDT Office Visit [facility] [address] [place] [address] Zaria Temple, [facility] 03/24/2021 Travel 03/24/2021 10:00 AM CDT Office Visit [facility] [place] [address] Steve Bello, DMD 08/05/2019 Converted CPS Chart Documents [facility] [place] [address] <No scans attached> 08/05/2019 Converted 13x Documents [facility] [place] [address] <No scans attached> Last Filed Vital Signs [...] st Contact Info) Description 05/19/2025 7:00 AM FINANCE DIRECTOR Office Visit [facility] [address] [address] Fernando Godfrey [address] [address] Procedures Procedure Name Priority Date/Time Associated Diagnosis [...] - ADULT Routine 08/21/2023 2 :00 PM FINANCE DIRECTOR Encounter for dental examination and cleaning without abnormal findings ORAL HYGIENE INSTRUCTIONS Routine 2023 2:00 PM FINANCE DIRECTOR PERIODIC ORAL EVALUATION - ESTABLISHED PATIENT Routine 08/21/2023 2:00 PM FINANCE DIRECTOR Encounter for dental examination and cleaning without abnormal findings BITEWINGS - FOUR RADIOGRAPHIC IMAGES Routine 08/21/2023 2:00 PM FINANCE DIRECTOR 5 MOD COMPOSITE FILLING Routine 08/21/19 12:00 AM FINANCE DIRECTOR PLAN VISIT FEE Routine 02/15/2023 7:00 AM CDT PERIODIC ORAL EVALUATION - ESTABLISHED PATIENT Routine 02/15/2023 7:00 AM CDT PROPHYLAXIS - ADULT Routine 02/15/2023 7 :00 AM CDT TOPICAL APPLICATION OF FLUORIDE VARNISH Routine 02/15/2023 7:00 AM CDT PLAN VISIT FEE Routine 08/09/2022 9:00 AM FINANCE DIRECTOR INTRAORAL PHOTO Routine 08/09/2022 9:00 AM FINANCE DIRECTOR COMPREHENSIVE ORAL EVALUATION - NEW OR ESTABLISHED PATIENT Routine 08/09/2022 9:00 AM FINANCE DIRECTOR INTRAORAL - COMPREHENSIVE SERIES OF RADIOGRAPHIC IMAGES Routine 08/09/2022 9:00 AM FINANCE DIRECTOR PANORAMIC RADIOGRAPHIC IMAGE Routine 08/09/2022 9:00 AM FINANCE DIRECTOR INTRAORAL PHOTO Routine 08/09/2022 9:00 AM FINANCE DIRECTOR INTRAORAL PHOTO Routine 08/09/2022 9:00 AM FINANCE DIRECTOR INTRAORAL PHOTO Routine 08/09/2022 9:00 AM FINANCE DIRECTOR PROPHYLAXIS - ADULT Routine 09/23/2021 8 :15 AM FINANCE DIRECTOR BITEWINGS - FOUR RADIOGRAPHIC IMAGES Routine 09/23/2021 8:00 AM FINANCE DIRECTOR PERIODIC ORAL EVALUATION - ESTABLISHED PATIENT Routine 09/23/2021 8:00 AM FINANCE DIRECTOR NEW PATIENT INTRAORAL - PERIAPICAL FIRST RADIOGRAPHIC IMAGE Routine 08/11/2021 8:00 AM FINANCE DIRECTOR 14 RECEMENT CROWN Routine 08/11/2021 8:0 0 AM FINANCE DIRECTOR OFFICE VISIT FOR OBSERVATION (DURING REGULARLY SCHEDULED HOURS) - NO OTHER SERVICES PERFORMED Routine 08/11/2021 8:00 AM FINANCE DIRECTOR TOPICAL APPLICATION OF FLUORIDE VARNISH Routine 03/24/2021 10:30 AM CDT PROPHYLAXIS - ADULT Routine 03/24/2021 1 0:30 AM CDT PLAN VISIT FEE Routine 03/24/2021 10:00 AM CDT PERIODIC ORAL EVALUATION - ESTABLISHED PATIENT Routine 03/24/2021 10:00 AM CDT 14 CERECFIRED CROWNPOST Routine 09/22/19 2:00 AM FINANCE DIRECTOR 18 CERECFIRED CROWNPOST Routine 09/22/19 2:00 AM FINANCE DIRECTOR 14 ENDODONTIC THERAPY, MOLAR TOOTH (EXCLUDING FINAL WORSHIP) Routine 09/21/2020 2:00 AM FINANCE DIRECTOR COMPREHENSIVE ORAL EVALUATION - NEW OR ESTABLISHED PATIENT Routine 09/21/2020 2:00 AM FINANCE DIRECTOR ORAL HYGIENE INSTRUCTIONS Routine 2020 2:00 AM FINANCE DIRECTOR ORAL HYGIENE INSTRUCTIONS Routine 2020 2:00 AM FINANCE DIRECTOR PROPHYLAXIS - ADULT Routine 09/21/2020 2 :00 AM FINANCE DIRECTOR PANORAMIC RADIOGRAPHIC IMAGE Routine 09/21/2020 2:00 AM FINANCE DIRECTOR INTRAORAL - COMPREHENSIVE SERIES OF RADIOGRAPHIC IMAGES Routine 09/21/2020 2:00 AM FINANCE DIRECTOR PLAN VISIT FEE Routine 09/21/2020 2:00 AM FINANCE DIRECTOR INTRAORAL PHOTO Routine 09/21/2020 2:00 AM FINANCE DIRECTOR INTRAORAL PHOTO Routine 09/21/2020 2:00 AM FINANCE DIRECTOR INTRAORAL PHOTO Routine 09/21/2020 2:00 AM FINANCE DIRECTOR INTRAORAL PHOTO Routine 09/21/2020 2:00 AM FINANCE DIRECTOR 19 DO COMPOSITE FILLING Routine 09/22/19 21 2:00 AM FINANCE DIRECTOR 31 O COMPOSITE FILLING Routine 1 2:00 AM FINANCE DIRECTOR 30 O COMPOSITE FILLING Routine 1 2:00 AM FINANCE DIRECTOR 15 O COMPOSITE FILLING Routine 1 2:00 AM FINANCE DIRECTOR 3 O COMPOSITE FILLING Routine 09/21/2020 2:00 AM FINANCE DIRECTOR 2 O COMPOSITE FILLING Routine 09/21/2020 2:00 AM FINANCE DIRECTOR Visit Diagnoses Diagnosis Start Date Encounter for dental examination and cleaning without abnormal findings 08/21/2023 Encounter for dental examination and cleaning without abnormal findings 08/21/2023 Encounter for dental examination and cleaning without abnormal findings 03/21/2024 Encounter for dental examination and cleaning without abnormal findings 03/21/2024 Encounter for dental examination and cleaning without abnormal findings 11/11/2024 Insurance [facility] ELISE PEARSON [id number] [facility] [place]
--- OUTSIDE RECORDS SUMMARY | 2025-04-22 13:46 | XMS_ITS | Clinical Summary ---
Author Organization [facility] Address [address] [facility] [place] [address] Care Team Providers Care Quantitative Developer Name Role Phone Michael Covington DO Primary Care Provider [phone] Tanisha Rascon DDS Unavailable Luis Cabrera MD Unavailable [phone] Source Comments [facility],non-owned Affiliates and Associated Physician Practices is amultiple site organization consisting of ambulatory clinics and hospital sitesin [place], [place], [place] and [place]. This disclosure is being madepursuant to the Care Everywhere program and may not contain all information available regarding this patient. Last updated 18.[facility] Allergies No known active allergies Medications * [...] Department Care Team Description 04/02/2025 Results Follow-Up [facility] [address] [place] [address] Michael Covington DO 02/05/2025 9:00 AM CDT Office Visit [facility] [address] [facility] [address] [place] [phone] Elaina Sequeira, MAINTENANCE INSPECTOR-LAND LEVELER Concussion without loss of consciousness, initial encounter (Primary Dx) 02/04/2025 Nurse Triage [facility] [address] [facility] [place] [phone] Michael Covington DO Headache; Question from Last [...] on file Legal Sex 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 Gender Identity Not on file Sexual Orientation Not on file Last Filed Vital Signs Vital Sign Reading Time Taken Comments Blood Pressure 134/90 02/05/2025 9:11 AM CDT Pulse 77 02/05/2025 9:11 AM CDT Temperature 36 C (96.8 F) 05/22/2024 3:37 PM CIRCUIT DESIGN ENGINEER Respiratory Rate 18 12/02/2024 8:11 AM CDT [...] 29 U/L [facility] Comment: Test Performed at: [employer] [email or web address] [id number] [place] [phone] JASMIN HAMILTON MD Blood BLOOD SPECIMEN / Unknown 12/13/2024 8:43 AM CDT 12/13/2024 8:49 AM CDT Kvng Pablo MD LAB - CHEMISTRY ORDERABLES F inal Result [facility] [address] [place] [address] * (ABNORMAL) LIPID PROFILE (12/19/2022 8:05 AM [...] LDL-C. Ty SS et al. VIPUL. 2013;310(19): 7962-1958 (http://education.Lontra/faq/JXJ874) CHOL/HDLC RATIO 3.8 <5.0 (calc) [facility] Non HDL Cholesterol 165(H) <130 mg/dL (calc) [facility] Comment: For patients with diabetes plus 1 major ASCVD risk factor, treating to a non-HDL-C goal of <100 mg/dL (LDL-C of <70 mg/dL) is considered a therapeutic option. Test Performed at: [email or web address] [address] [place] [id number] JASMIN HAMILTON MD Blood BLOOD SPECIMEN / Unknown 12/19/2022 8:05 AM CDT 12/19/2022 8:06 AM CDT Michael Covington DO LAB - CHEMISTRY ORDERABLES Fin al Result [facility] [address] [place] [address] from Last 3 Months or Most Recently Relevant to Health Maintenance Insurance [facility] Care Teams Quantitative Developer Relationship Specialty Start Date End Date Michael Covington DO PCP - General Family Medicine 08/05/19 Tanisha Rascon DDS [id number] [facility] [address] [place] [address] Dentist 02/26/20 Luis Cabrera MD [address] [facility] [address] [place] [address] Pulmonary Disease 09/24/24
== END 2025-04-22 13:21 | disposition home or self-care (01) ==
PROVIDERS: Emergency Provider Emergency Medicine
DX: S16.1XXA Strain of muscle, fascia and tendon at neck level, initial encounter (principal); S80.02XA Contusion of left knee, initial encounter; V49.40XA Driver injured in collision with unspecified motor vehicles in traffic accident, initial encounter
CPT/HCPCS: 70450; 72125; 73562; 99284; A9270